=== PATIENT | male | born 1990 | race Caucasian/White ===

== ENCOUNTER 2021-03-22 05:03 | Emergency (ER) | payer MEDICAID ==
[~2021-03-22] VITALS: Ht 185.4 cm; Wt 136.1 kg
[2021-03-22] MEDS: IV NORMAL SALINE 1000 ML BAG IV ONE (06:15)
[2021-03-22] MEDS: VANCOMYCIN 1G/D5W 200 ML PIGGYBACK IV ONE (06:24)
[2021-03-22] MEDS ORDERED: VANCOMYCIN IV 200 ML ONE (06:25)
[2021-03-22 06:53] LABS: HEMATOCRIT 37.3 % (36.7-47.1); MEAN CORPUSCULAR HEMOGLOBIN 28.6 uug (23.8-33.4); MEAN CORPUSCULAR VOLUME 85.5 fL (73.0-96.2); PLATELET COUNT (AUTO) 347 K/uL (152-348)
[2021-03-22 06:57] LABS: CREATININE 1.1 mg/dL (0.6-1.3); POTASSIUM 3.8 mmol/L (3.5-5.1)
[2021-03-22 07:02] LABS: BILIRUBIN,DIRECT 0.2 mg/dL (0.0-0.2); BILIRUBIN,TOTAL 0.5 mg/dL (0.2-1.0); TOTAL PROTEIN, SERUM 7.2 g/dL (6.4-8.2)
[2021-03-22] MEDS ORDERED: SULF1TAB48 PO (12:30)
[2021-03-22] MEDS ORDERED: CEPH500C2 PO (12:30)
--- NOTE | 2021-03-22 12:30 | NUR ---
Patient discharged to home in stable condition. Written and verbal after care instructions given. Patient verbalizes understanding of instructions. Stressed follow up or return to ER for worsening s/s.
[2021-03-22 13:43] VITALS: BP 141/77
== END 2021-03-22 12:30 | disposition home or self-care (01) ==
LOC: ER 05:10
DX: R22.43 Localized swelling, mass and lump, lower limb, bilateral (principal); L53.9 Erythematous condition, unspecified; F17.210 Nicotine dependence, cigarettes, uncomplicated
CPT/HCPCS: 36415; 73590 ×2; 80048; 80076; 82550; 85025; 96365; 96366; 99284; J3370; A4663; J7030

== ENCOUNTER 2021-04-19 02:49 | Emergency (ER) | payer MEDICAID, OTHER ==
[~2021-04-19] VITALS: Ht 182.9 cm; Wt 136.1 kg
[~2021-04-19 02:49] MED LIST: CEPH500C2 PO; SULF1TAB48 PO
--- NOTE | 2021-04-19 03:30 | NUR ---
pt ambulated to room 2a, pt c/o bilat lower leg cellulitus.
[2021-04-19] MEDS ORDERED: HYDR-3980 PO (03:59)
[2021-04-19] MEDS ORDERED: CEPH500C2 PO (03:59)
[2021-04-19] MEDS ORDERED: SULF1TAB48 PO (03:59)
[2021-04-19] MEDS ORDERED: MUPI22OI2 (03:59)
--- NOTE | 2021-04-19 04:09 | NUR ---
Patient discharged to home in stable condition. Written and verbal after care instructions given. Patient verbalizes understanding of instructions. Stressed follow up or return to ER for worsening s/s. pt ambulatory with steady gait, denies pain.
[2021-04-19 04:10] VITALS: BP 143/53
== END 2021-04-19 04:10 | disposition home or self-care (01) ==
LOC: ER 02:55
DX: L97.929 Non-pressure chronic ulcer of unspecified part of left lower leg with unspecified severity (principal); L97.919 Non-pressure chronic ulcer of unspecified part of right lower leg with unspecified severity; E66.01 Morbid (severe) obesity due to excess calories; Z68.41 Body mass index [BMI] 40.0-44.9, adult; F17.210 Nicotine dependence, cigarettes, uncomplicated; Z79.899 Other long term (current) drug therapy
CPT/HCPCS: 87070; 87077; A4217; A4663

== ENCOUNTER 2021-06-02 22:02 | Emergency (ER) | payer OTHER ==
[~2021-06-02] VITALS: Ht 185.4 cm; Wt 136.1 kg
[~2021-06-02 22:02] MED LIST changes: +HYDR-3980 PO; +MUPI22OI2
--- NOTE | 2021-06-02 22:16 | NUR ---
PT AMBULATED TO ER WITH STEADY GAIT C/O BLE SWELLING SEEN IN APR 2021 FOR CELLULITIS. A/O X4, NO SOB OR LABORED BREATHING, AFEBRILE. DENIES ANY CP/PRESSURE.
--- NOTE | 2021-06-02 22:30 | NUR ---
DR. NARCISO Wang AT BEDSIDE, MSE IN PROGRESS.
[2021-06-02] MEDS ORDERED: SULF1TAB48 PO (22:44)
[2021-06-02] MEDS ORDERED: HYDR-4209 PO (22:44)
[2021-06-02] MEDS ORDERED: CEPH500T PO (22:44)
[2021-06-02] MEDS ORDERED: ONDANSETRON ODT 4 MG TAB.RAPDIS SL ONE (22:45)
[2021-06-02] MEDS ORDERED: HYDROCODONE/APAP 10-325 MG TABLET PO ONE (22:45)
[2021-06-02] MEDS ORDERED: CEFTRIAXONE 1 G VIAL IM ONE (22:45)
[2021-06-02] MEDS ORDERED: SULFAMETH/TRIMETH 800/160 MG TABLET PO ONE (22:45)
[2021-06-02] MEDS ORDERED: ONDANSETRON ODT 4 MG TAB.RAPDIS ONE (22:47)
[2021-06-02] MEDS ORDERED: LIDOCAINE HCL 1% 20 ML VIAL ONE (22:47)
[2021-06-02] MEDS ORDERED: CEFTRIAXONE 1 G VIAL ONE (22:47)
[2021-06-02] MEDS ORDERED: SULFAMETH/TRIMETH 800/160 MG TABLET ONE (22:48)
[2021-06-02] MEDS ORDERED: HYDROCODONE/APAP 10-325 MG TABLET ONE (22:48)
--- NOTE | 2021-06-02 23:05 | NUR ---
Patient discharged to home in stable condition. Written and verbal after care instructions given. Patient verbalizes understanding of instructions. Stressed follow up or return to ER for worsening s/s. Steady gait, picked up by family.
[2021-06-02 23:06] VITALS: BP 121/70
== END 2021-06-02 23:07 | disposition home or self-care (01) ==
LOC: ER 22:02
DX: L03.116 Cellulitis of left lower limb (principal); L97.921 Non-pressure chronic ulcer of unspecified part of left lower leg limited to breakdown of skin; F17.210 Nicotine dependence, cigarettes, uncomplicated; R60.9 Edema, unspecified; E66.9 Obesity, unspecified; Z68.39 Body mass index [BMI] 39.0-39.9, adult; F15.90 Other stimulant use, unspecified, uncomplicated
CPT/HCPCS: 96372; 99284; 99406; J0696; J3490; A4663; Q0162

== ENCOUNTER 2021-12-18 20:16 | Emergency (ER) | payer OTHER ==
[~2021-12-18 20:16] MED LIST changes: +CEPH500T PO; +HYDR-4209 PO
--- NOTE | 2021-12-18 23:45 | NUR ---
PATIENT WAS JUST CALLED TO BE TRIAGED AT THIS TIME DUE TO ONLY TWO NURSE IN THE ER WITH WITH ALL BEDS OCCUPIED AT THIS TIME. BUT PATIENT WAS NOT PRESENT IN THE WAITING ROOM OR OUTSIDE OF ER.
--- NOTE | 2021-12-19 00:46 | NUR ---
Patient was called to be triaged but not present in the waiting room or outside of ER.
== END 2021-12-19 00:47 | disposition left against medical advice (07) ==
LOC: ER 20:20
DX: Z53.21 Procedure and treatment not carried out due to patient leaving prior to being seen by health care provider (principal)

== ENCOUNTER 2021-12-21 02:08 | Emergency (ER) | payer OTHER ==
[~2021-12-21] VITALS: Ht 182.9 cm; Wt 136.1 kg
--- NOTE | 2021-12-21 02:33 | NUR ---
Dr. Parsons at bedside. MSE in progress.
[2021-12-21] MEDS ORDERED: CEPH500T PO (02:38)
[2021-12-21] MEDS ORDERED: HYDR-3980 PO (02:38)
[2021-12-21] MEDS ORDERED: SULF1TAB48 PO (02:38)
[2021-12-21] MEDS ORDERED: SULFAMETH/TRIMETH 800/160 MG TABLET ONE (02:39)
[2021-12-21] MEDS ORDERED: CEFTRIAXONE 1 G VIAL ONE (02:40)
[2021-12-21] MEDS ORDERED: HYDROCODONE/APAP 10-325 MG TABLET ONE (02:41)
[2021-12-21] MEDS ORDERED: LIDOCAINE HCL 1% 20 ML VIAL ONE (02:41)
[2021-12-21] MEDS ORDERED: SULFAMETH/TRIMETH 800/160 MG TABLET PO ONE (02:45)
[2021-12-21] MEDS ORDERED: CEFTRIAXONE 1 G VIAL IM ONE (02:45)
[2021-12-21] MEDS ORDERED: HYDROCODONE/APAP 10-325 MG TABLET PO ONE (02:45)
[2021-12-21 03:00] VITALS: BP 120/80
--- NOTE | 2021-12-21 03:02 | NUR ---
Pt discharged prior to [facility] reassessment time.
--- NOTE | 2021-12-21 03:03 | NUR ---
Patient discharged to home in stable condition. A/O X3. Ambulatory with steady gait. NAD noted. Written and verbal after care instructions given. Patient verbalizes understanding of instructions. Stressed follow up or return to ER for worsening s/s.
== END 2021-12-21 03:05 | disposition home or self-care (01) ==
LOC: ER 02:11
DX: L03.116 Cellulitis of left lower limb (principal); R60.0 Localized edema; F17.210 Nicotine dependence, cigarettes, uncomplicated
CPT/HCPCS: 99283; 99406; 96372; J0696; J3490; A4663

== ENCOUNTER 2022-08-09 02:06 | Emergency (ER) | payer OTHER ==
[~2022-08-09] VITALS: Ht 185.4 cm; Wt 145.1 kg
[2022-08-09] MEDS ORDERED: HYDROCODONE/APAP 10-325 MG TABLET PO ONE (02:30)
[2022-08-09] MEDS ORDERED: HYDROCODONE/APAP 10-325 MG TABLET ONE (02:30)
[2022-08-09] MEDS ORDERED: SULFAMETH/TRIMETH 800/160 MG TABLET PO ONE (02:30)
[2022-08-09] MEDS ORDERED: SULFAMETH/TRIMETH 800/160 MG TABLET ONE (02:30)
[2022-08-09] MEDS ORDERED: SULF1TAB48 PO (02:34)
[2022-08-09] MEDS ORDERED: HYDR-3980 PO (02:34)
[2022-08-09] MEDS ORDERED: CEPH500T PO (02:34)
[2022-08-09] MEDS ORDERED: CEphaleXIN 500 MG CAPSULE ONE (02:37)
--- NOTE | 2022-08-09 02:42 | NUR ---
Patient discharged to home in stable condition. Written and verbal after care instructions given. Patient verbalizes understanding of instructions. Stressed follow up or return to ER for worsening s/s. Patient is a/ox4, NAD noted, patient ambulated with steady gait
[2022-08-09 02:44] VITALS: BP 128/78
[2022-08-09] MEDS ORDERED: CEphaleXIN 500 MG CAPSULE PO ONE (02:45)
== END 2022-08-09 02:50 | disposition home or self-care (01) ==
LOC: ER 02:06
DX: R60.0 Localized edema (principal); L97.929 Non-pressure chronic ulcer of unspecified part of left lower leg with unspecified severity; F15.10 Other stimulant abuse, uncomplicated; F17.210 Nicotine dependence, cigarettes, uncomplicated; Z71.6 Tobacco abuse counseling; Z79.2 Long term (current) use of antibiotics; Z79.899 Other long term (current) drug therapy
CPT/HCPCS: A4663

== ENCOUNTER 2022-11-13 03:32 | Emergency (ER) | payer OTHER ==
[~2022-11-13] VITALS: Ht 185.4 cm; Wt 149.7 kg
[2022-11-13] MEDS ORDERED: SULF1TAB48 PO (04:05)
[2022-11-13] MEDS ORDERED: CEPH500C2 PO (04:05)
[2022-11-13] MEDS ORDERED: SULFAMETH/TRIMETH 800/160 MG TABLET ONE (04:07)
[2022-11-13] MEDS ORDERED: CEphaleXIN 500 MG CAPSULE ONE (04:07)
[2022-11-13 04:14] VITALS: BP 145/84; O2SAT 97
[2022-11-13] MEDS ORDERED: SULFAMETH/TRIMETH 800/160 MG TABLET PO ONE (04:15)
[2022-11-13] MEDS ORDERED: CEphaleXIN 500 MG CAPSULE PO ONE (04:15)
== END 2022-11-13 04:15 | disposition home or self-care (01) ==
LOC: ER 03:34
DX: L97.929 Non-pressure chronic ulcer of unspecified part of left lower leg with unspecified severity (principal); E66.01 Morbid (severe) obesity due to excess calories; F17.210 Nicotine dependence, cigarettes, uncomplicated; Z71.6 Tobacco abuse counseling; Z68.41 Body mass index [BMI] 40.0-44.9, adult; Z79.899 Other long term (current) drug therapy
CPT/HCPCS: A4663

== ENCOUNTER 2022-12-09 06:18 | Emergency (ER) | payer OTHER ==
[~2022-12-09] VITALS: Ht 185.4 cm; Wt 147.4 kg
[2022-12-09] MEDS ORDERED: SULFAMETH/TRIMETH 800/160 MG TABLET PO ONE (07:45)
[2022-12-09] MEDS ORDERED: CEphaleXIN 500 MG CAPSULE PO ONE (07:45)
[2022-12-09] MEDS ORDERED: CEPH500C2 PO (07:51)
[2022-12-09] MEDS ORDERED: SULF1TAB48 PO (07:51)
[2022-12-09 10:09] VITALS: BP 142/78; TEMP 97.8; O2SAT 98
== END 2022-12-09 10:10 | disposition home or self-care (01) ==
LOC: ER 06:20
DX: L03.116 Cellulitis of left lower limb (principal); L97.929 Non-pressure chronic ulcer of unspecified part of left lower leg with unspecified severity; L97.919 Non-pressure chronic ulcer of unspecified part of right lower leg with unspecified severity; J45.909 Unspecified asthma, uncomplicated; Z87.891 Personal history of nicotine dependence; Z79.899 Other long term (current) drug therapy
CPT/HCPCS: A4663

== ENCOUNTER 2023-02-08 02:46 | Emergency (ER) | payer SELFPAY | END 2023-02-08 03:30 | disposition left against medical advice (07) | LOC: ER 03:03 | DX: Z53.21 Procedure and treatment not carried out due to patient leaving prior to being seen by health care provider (principal) ==

== ENCOUNTER 2023-10-10 03:03 | Emergency (ER) | payer OTHER ==
[~2023-10-10] VITALS: Ht 182.9 cm; Wt 136.1 kg
[2023-10-10 04:08] LABS: BASOPHILS # (AUTO) 0.1 K/UL (0.0-0.2); BASOPHILS % (AUTO) 0.4 % (0.0-2.0); EOSINOPHILS # (AUTO) 0.2 K/uL (0.0-0.7); EOSINOPHILS % (AUTO) 1.2 % (0.0-7.0); HEMOGLOBIN 14.7 g/dL (12.5-16.3); LYMPHOCYTES # (AUTO) 2.7 K/uL (0.8-4.8); LYMPHOCYTES % (AUTO) 19.3 % (20.5-51.5); MEAN CORPUSCULAR HEMOGLOBIN 28.6 uug (23.8-33.4); MEAN CORPUSCULAR HGB CONC 33 g/dL (32.5-36.3); MEAN CORPUSCULAR VOLUME 85.8 fL (73.0-96.2); MONOCYTES # (AUTO) 1.2 K/uL (0.1-1.30); MONOCYTES % (AUTO) 8.8 % (0.0-11.0); NEUTROPHILS # (AUTO) 9.9 K/uL (1.8-8.9); NEUTROPHILS % (AUTO) 70.3 % (38.5-71.5); PLATELET COUNT (AUTO) 421 K/uL (152-348); RED BLOOD CELL COUNT(AUTO) 5.13 MIL/uL (4.06-5.63); RED CELL DISTRIBUTION WIDTH 13.7 % (12.1-16.2); WHITE BLOOD COUNT (AUTO) 14.1 K/uL (3.6-10.2)
[2023-10-10 04:18] LABS: DIFFERENTIAL COMMENT 1
[2023-10-10 04:22] LABS: CALCIUM 8.7 mg/dL (8.5-10.1); CREATININE 1.2 mg/dL (0.6-1.3); POTASSIUM 3.5 mmol/L (3.5-5.1)
[2023-10-10 04:28] LABS: ALBUMIN 2.5 g/dL (3.4-5.0); BILIRUBIN,TOTAL 0.7 mg/dL (0.2-1.0); TOTAL PROTEIN, SERUM 8.6 g/dL (6.4-8.2)
[2023-10-10 04:31] LABS: C-REACTIVE PROTEIN 17.78 mg/dL (0.00-0.30)
[2023-10-10] MEDS ORDERED: VANCOMYCIN IV 200 ML ONE (05:12)
[2023-10-10] MEDS: VANCOMYCIN IV 1,000 MG in IV DEXTROSE 5% 250 ML IV ONE (05:36)
[2023-10-10] MEDS ORDERED: CEPH500C2 PO (06:13)
[2023-10-10] MEDS: NEOMY/BACITRA/POLYMYXIN B OINT UD PACKET TP ONE (06:18)
[2023-10-10] MEDS ORDERED: NEOMY/BACITRA/POLYMYXIN B OINT UD PACKET TP ONE (06:23)
[2023-10-10] MEDS ORDERED: VANCOMYCIN HCL 500 MG VIAL ONE (08:06)
[2023-10-10] MEDS: VANCOMYCIN IV 500 MG in IV DEXTROSE 5% 100 ML IV ONE (08:15)
[2023-10-10 09:26] VITALS: BP 123/65; TEMP 99.1; O2SAT 97
== END 2023-10-10 09:22 | disposition home or self-care (01) ==
LOC: ER 03:14
DX: I87.2 Venous insufficiency (chronic) (peripheral) (principal); L97.921 Non-pressure chronic ulcer of unspecified part of left lower leg limited to breakdown of skin; L97.911 Non-pressure chronic ulcer of unspecified part of right lower leg limited to breakdown of skin; L03.116 Cellulitis of left lower limb; E66.01 Morbid (severe) obesity due to excess calories; F17.200 Nicotine dependence, unspecified, uncomplicated; M79.605 Pain in left leg; M79.604 Pain in right leg; Z98.890 Other specified postprocedural states; Z79.891 Long term (current) use of opiate analgesic; Z68.41 Body mass index [BMI] 40.0-44.9, adult; Z88.1 Allergy status to other antibiotic agents
CPT/HCPCS: 99285; 93970; 96365; 96366; 80053; 85025; 85379; 86140; 87040; 36415; 83605; J3370 ×3